=== PATIENT | male | born 1955 | race Caucasian/White ===

== ENCOUNTER 2017-02-07 08:48 | Emergency (ER) | payer OTHER ==
[2017-02-07 08:53] VITALS: RESP 18
[2017-02-07] MEDS ORDERED: NS 1,000 ML IV ONE (09:07)
[2017-02-07] MEDS ORDERED: OSELTAMIVIR PHOSPHATE 75 MG CAP PO ONE (09:12)
--- NOTE | 2017-02-07 09:12 | EDPHY ---
H & P Stated Complaint: cough, sore throat HPI/ROS: CHIEF COMPLAINT: Flu-like symptoms HISTORY OF PRESENT ILLNESS: Patient complains of 4 days history of body aches, fevers, chills, productive cough, malaise and myalgia. This was sudden onset. Constant duration. Moderate to severe. More severe than previous incidence of viral illness. The patient feels that he has the flu, but wants to make sure that he does not have pneumonia or strep. He started a Z-Rosas on himself 3 days ago. He has no chest pain. No shortness of breath. No abdominal pain. No urinary complaints other than baseline BPH. Minimal nausea. No vomiting. No neck pain or stiffness. Does have a mild, persistent headache. No other associated complaints or modifying factors. REVIEW OF SYSTEMS: Ten systems reviewed and are negative unless otherwise noted in the HPI PERTINENT MEDICAL HISTORY: None EXAMINATION General Appearance: Alert, no distress Head: normocephalic, atraumatic Eyes: Pupils equal and round, no conjunctival pallor or injection. EOMs intact. ENT, Mouth: Mucous membranes moist. Uvula midline. Minimal erythema and cobblestoning. No edema. Airway is widely patent. Neck: Normal inspection, supple, non-tender. No rigidity or meningismus. Respiratory: Lungs are clear to auscultation. No wheezing, rhonchi or crackles. No distress or retractions Cardiovascular: Regular rate and rhythm. No murmur. Pulses intact distally. Gastrointestinal: Abdomen is soft and nontender. No hepatosplenomegaly. No tympany. No rigidity. Back: non-tender, no bony abnormalities Neurological: GCS is A&O, nonfocal, normal gait Skin: Warm and dry, no rash. No petechiae or purpura Extremities: Nontender, no pedal edema Psychiatric: Mood and affect normal DIFFERENTIAL DIAGNOSES: Including but not limited to influenza, viral illness, community-acquired pneumonia, strep pharyngitis, viral pharyngitis MDM: 9:08 a.m. Flu-like symptoms. The patient has all normal vital signs. Examination is unremarkable for any abnormal findings. Does have some mild postnasal drip. 10:15 a.m. chest x-ray unremarkable as read by myself and Dr. Farrell. Laboratory studies thus far suggest viral illness. Influenza test is pending at this time. We discussed this with the patient and he is comfortable being discharged home with presumed influenza treatment. We started treatment with Tamiflu. Discharged home with continuation for 5 days. He is to follow up with primary care physician. We will contact him when his laboratory studies returned. He is discharged home stable condition. SUPERVISION: Patient was evaluated in conjunction with the supervising physician. Please see their note for details. Source: Patient Exam Limitations: No limitations - Personal History Current Tetanus/Diphtheria Vaccine: Yes Current Tetanus Diphtheria and Acellular Pertussis (TDAP): Yes - Medical/Surgical History Hx Asthma: No Hx Chronic Respiratory Disease: No Hx Diabetes: No Hx Cardiac Disease: No Hx Renal Disease: No Hx Cirrhosis: No Hx Alcoholism: No Hx HIV/AIDS: No Hx Splenectomy or Spleen Trauma: No Other PMH: orthopedic injuries - Family History Significant Family History: No pertinent family hx - Social History Smoking Status: Former smoker Constitutional: Initial Vital Signs Temperature (C) 98.1 F 02/07/17 08:51 Heart Rate 79 02/07/17 08:51 Respiratory Rate 18 02/07/17 08:51 Blood Pressure 108/69 02/07/17 08:51 O2 Sat (%) 96 02/07/17 08:51 O2 Delivery Mode Room Air Allergies/Adverse Reactions: No Known Allergies Allergy (Unverified 02/07/17 08:50) Home Medications: Medication Instructions Recorded Oseltamivir Phosphate [Tamiflu 75 75 mg PO BID #10 cap 02/07/17 mg (*)] Medical Decision Making - Diagnostics Imaging Results: Imaging Impressions Chest X-Ray 02/07/17 09:07 Impression: Findings consistent with airways disease are noted with no superimposed pneumonia identified. - Data Points Laboratory Results: Laboratory Results 02/07/17 09:15 02/07/17 09:15 02/07/17 02/07/17 02/07/17 Unknown 09:25 09:15 WBC RBC Hgb Hct MCV MCH MCHC RDW Plt Count MPV Neut % (Auto) Lymph % (Auto) [place] % (Auto) Eos % (Auto) Baso % (Auto) Nucleat RBC Rel Count Absolute Neuts (auto) Absolute Lymphs (auto) Absolute Monos (auto) Absolute Eos (auto) Absolute Basos (auto) Absolute Nucleated RBC Immature Gran % Immature Gran # Sodium Potassium Chloride Carbon Dioxide Anion Gap BUN Creatinine Estimated GFR Glucose Calcium Total Bilirubin Conjugated Bilirubin Unconjugated Bilirubin AST ALT Alkaline Phosphatase Total Protein Albumin Lipase Influenza Typ A,B (DFA) Influenza A & B (PCR) POSITIVE FOR FLU B H (NEGATIVE) Mycoplasma pneumon IgM NEGATIVE (NEGATIVE) Group A Strep Screen Group A Strep DNA Pending 02/07/17 02/07/17 02/07/17 09:15 09:15 09:15 WBC RBC Hgb Hct MCV MCH MCHC RDW Plt Count MPV Neut % (Auto) Lymph % (Auto) [place] % (Auto) Eos % (Auto) Baso % (Auto) Nucleat RBC Rel Count Absolute Neuts (auto) Absolute Lymphs (auto) Absolute Monos (auto) Absolute Eos (auto) Absolute Basos (auto) Absolute Nucleated RBC Immature Gran % Immature Gran # Sodium 138 mEq/L mEq/L (134-144) Potassium 4.2 mEq/L mEq/L (3.5-5.2) Chloride 103 mEq/L mEq/L (97-110) Carbon Dioxide 25 mEq/l mEq/l (22-31) Anion Gap 10 mEq/L mEq/L (8-16) BUN 15 mg/dL mg/dL (7-23) Creatinine 0.8 mg/dL mg/dL (0.7-1.3) Estimated GFR > 60 Glucose 117 mg/dL H mg/dL (70-100) Calcium 9.7 mg/dL mg/dL (8.5-10.4) Total Bilirubin 1.0 mg/dL mg/dL (0.1-1.4) Conjugated Bilirubin 0.3 mg/dL mg/dL (0.0-0.5) Unconjugated Bilirubin 0.7 mg/dL mg/dL (0.0-1.1) AST 23 IU/L IU/L (17-59) ALT 31 IU/L IU/L (21-72) Alkaline Phosphatase 58 IU/L IU/L (38-126) Total Protein 7.0 g/dL g/dL (6.3-8.2) Albumin 4.4 g/dL g/dL (3.5-5.0) Lipase 57.0 IU/L IU/L (23-300) Influenza Typ A,B (DFA) Cancelled Influenza A & B (PCR) Mycoplasma pneumon IgM Group A Strep Screen NEGATIVE (NEGATIVE) Group A Strep DNA 02/07/17 09:15 WBC 2.99 10^3/uL L 10^3/uL (3.80-9.50) RBC 4.75 10^6/uL 10^6/uL (4.40-6.38) Hgb 14.5 g/dL g/dL (13.7-17.5) Hct 42.6 % % (40.0-51.0) MCV 89.7 fL fL (81.5-99.8) MCH 30.5 pg pg (27.9-34.1) MCHC 34.0 g/dL g/dL (32.4-36.7) RDW 13.3 % % (11.5-15.2) Plt Count 95 10^3/uL L 10^3/uL (150-400) MPV 12.2 fL H fL (8.7-11.7) Neut % (Auto) 54.5 % % (39.3-74.2) Lymph % (Auto) 25.8 % % (15.0-45.0) [place] % (Auto) 18.1 % H % (4.5-13.0) Eos % (Auto) 1.3 % % (0.6-7.6) Baso % (Auto) 0.3 % % (0.3-1.7) Nucleat RBC Rel Count 0.0 % % (0.0-0.2) Absolute Neuts (auto) 1.63 10^3/uL L 10^3/uL (1.70-6.50) Absolute Lymphs (auto) 0.77 10^3/uL L 10^3/uL (1.00-3.00) Absolute Monos (auto) 0.54 10^3/uL 10^3/uL (0.30-0.80) Absolute Eos (auto) 0.04 10^3/uL 10^3/uL (0.03-0.40) Absolute Basos (auto) 0.01 10^3/uL L 10^3/uL (0.02-0.10) Absolute Nucleated RBC 0.00 10^3/uL 10^3/uL (0-0.01) Immature Gran % 0.0 % % (0.0-1.1) Immature Gran # 0.00 10^3/uL 10^3/uL (0.00-0.10) Sodium Potassium Chloride Carbon Dioxide Anion Gap BUN Creatinine Estimated GFR Glucose Calcium Total Bilirubin Conjugated Bilirubin Unconjugated Bilirubin AST ALT Alkaline Phosphatase Total Protein Albumin Lipase Influenza Typ A,B (DFA) Influenza A & B (PCR) Mycoplasma pneumon IgM Group A Strep Screen Group A Strep DNA Medications Given: Discontinued Medications Sodium Chloride (Ns) 1,000 mls @ 0 mls/hr IV ONCE ONE PRN Reason: Wide Open Stop: 02/07/17 09:08 Last Admin: 02/07/17 09:28 Dose: 1,000 mls Oseltamivir Phosphate (Tamiflu) 75 mg PO EDNOW ONE Stop: 02/07/17 09:13 Last Admin: 02/07/17 09:38 Dose: 75 mg Departure - Departure Disposition: Home, Routine, Self-Care Clinical Impression: Flu-like symptoms, Cough Condition: Good Instructions: Influenza (ED) Additional Instructions: Medications as discussed. Follow up with PCP. ED precautions as discussed Referrals: Umesh Eid MD [Primary Care Provider] - As per Instructions Prescriptions: Oseltamivir Phosphate [Tamiflu 75 mg (*)] 75 mg PO BID #10 cap
[2017-02-07 09:33] LABS: ADD DIFF? NO; ADD MORPH? NO; ADD SCAN? NO; ATYPICAL LYMPHOCYTE FLAG 10 (0-99); FRAGMENT RBC FLAG 0 (0-99); HEMATOCRIT 42.6 % (40.0-51.0); HEMOGLOBIN 14.5 g/dL (13.7-17.5); LEFT SHIFT FLG 0 (0-99); LIPEMIA HEMOLYSIS FLAG 90 (0-99); MEAN CELL HEMOGLOBIN 30.5 pg (27.9-34.1); MEAN CELL VOLUME 89.7 fL (81.5-99.8); MEAN PLATELET VOLUME 12.2 fL (8.7-11.7); PLATELET CLUMPS FLAG 10 (0-99); PLATELET COUNT 95 10^3/uL (150-400); RED BLOOD CELL COUNT 4.75 10^6/uL (4.40-6.38); RED CELL DISTRIBUTION WIDTH 13.3 % (11.5-15.2)
[2017-02-07 09:55] LABS: ALANINE AMINOTRANSFERASE 31 IU/L (21-72); ALBUMIN 4.4 g/dL (3.5-5.0); ALKALINE PHOSPHATASE 58 IU/L (38-126); ANION GAP 10 mEq/L (8-16); ASPARTATE AMINOTRANSFERASE 23 IU/L (17-59); BILIRUBIN-CONJUGATED 0.3 mg/dL (0.0-0.5); BILIRUBIN-UNCONJUGATED 0.7 mg/dL (0.0-1.1); CALCIUM 9.7 mg/dL (8.5-10.4); CARBON DIOXIDE 25 mEq/l (22-31); CHLORIDE 103 mEq/L (97-110); CREATININE 0.8 mg/dL (0.7-1.3); GLOMERULAR FILTRATION RATE > 60; GLUCOSE 117 mg/dL (70-100); POTASSIUM 4.2 mEq/L (3.5-5.2); SODIUM 138 mEq/L (134-144)
[2017-02-07 10:03] VITALS: BP 120/69; PULSE 65; TEMP 98.6; O2SAT 94
== END 2017-02-07 10:04 | disposition home or self-care (01) ==
DX: J10.1 Influenza due to other identified influenza virus with other respiratory manifestations (principal); Z87.891 Personal history of nicotine dependence
CPT/HCPCS: 86738-90

== ENCOUNTER → 2017-02-11 | Day surgery (SDC) | payer OTHER ==
[~2017-02-11] MED LIST: ATROPINE SULFATE 1 MG/10 ML SYR ONE; BENZOCAINE UNIT DOSE SPRAY HURRICAINE MM ONE; MIDAZOLAM 2 MG/2 ML VIAL IVP ONE; NS 1,000 ML IV SCH; NS 500 ML IV ONE; PROPOFOL 200 MG/20 ML VIAL IVP ONE; fentaNYL 100 MCG/2 ML INJ IVP ONE
[2017-02-11 19:58] LABS: ADD DIFF? NO; ADD MORPH? NO; ADD SCAN? NO; ATYPICAL LYMPHOCYTE FLAG 70 (0-99); FRAGMENT RBC FLAG 0 (0-99); HEMATOCRIT 40.4 % (40.0-51.0); HEMOGLOBIN 13.8 g/dL (13.7-17.5); LEFT SHIFT FLG 0 (0-99); LIPEMIA HEMOLYSIS FLAG 90 (0-99); MEAN CELL HEMOGLOBIN 30.6 pg (27.9-34.1); MEAN CELL HEMOGLOBIN CONCENTR. 34.2 g/dL (32.4-36.7); MEAN CELL VOLUME 89.6 fL (81.5-99.8); PLATELET CLUMPS FLAG 10 (0-99); PLATELET COUNT 115 10^3/uL (150-400); RED BLOOD CELL COUNT 4.51 10^6/uL (4.40-6.38); RED CELL DISTRIBUTION WIDTH 12.9 % (11.5-15.2)
[2017-02-11 20:08] LABS: INR 1.1 (0.83-1.16); PROTIME(PATIENT) 14.1 SEC (12.0-15.0)
[2017-02-11 20:09] LABS: APTT 33.2 SEC (23.0-38.0)
--- NOTE | 2017-02-11 20:10 | PDTEE1 ---
MARILYN Cardioversion Procedure Procedure: Electrical Cardioversion, Transesophageal Echo Indications: Other (atrial flutter) Procedural Details: Pads were placed in anterior-posterior position. MARILYN probe was advanced and standard images obtained. There is no evidence of left atrial or left atrial appendage thrombus. 70 joules applied in a synchronized fashion with latter day of sinus. Synchronized cardioversion attempt #1: other (70 J) Results: Normal sinus rhythm Conclusions: Successful MARILYN Cardioversion Conclusion Comment: 1. eliquis 5 mg bid for thirty days. 2. ecg in one week. Patient Problems: Problems Problem Status Onset Atrial flutter Acute
--- NOTE | 2017-02-11 20:11 | CPEKG ---
Heart Rate: 69 RR Interval: 870 P-R Interval: 156 QRSD Interval: 86 QT Interval: 404 QTC Interval: 433 P [place]: 69 QRS [place]: 37 T Wave [place]: -11 EKG Severity - BORDERLINE ECG - EKG Impression: SINUS RHYTHM EKG Impression: BORDERLINE T ABNORMALITIES, INFERIOR LEADS Electronically Signed By: Charlie Liriano 12-Feb-2017 07:17:58
--- NOTE | 2017-02-11 20:13 | PDGENHP ---
History and Physical - Chief Complaint palpitations - History of Present Illness 61 yo male, no prior CV history with acute onset palpitations last night. He was found to be in atrial flutter and is here for a cardioversion guided by MARILYN. He denies chest pain, SOB, PND, orthopnea. He was started on metoprolol and eliquis earlier today. He had been ill with viral illness requiring hydration over the weekend. Questionable hx. of rheumatic fever as a child. History Information - Allergies/Home Medication List Allergies/Adverse Reactions: No Known Allergies Allergy (Unverified 02/07/17 08:50) I have personally reviewed and updated: family history, medical history, social history, surgical history - Past Medical History no pertinent PMH - Surgical History Additional surgical history: Shoulder replacement surgery - Family History Positive for: non-pertinent - Social History Smoking Status: Former smoker Alcohol Use: Occasionally Review of Systems Constitutional: Reports: recent illness EENMT: Reports: no symptoms Cardiac: Reports: no symptoms Respiratory: Reports: cough Gastrointestinal: Reports: no symptoms Genitourinary: Reports: no symptoms Muscolosketal: Reports: no symptoms Skin: Reports: no symptoms Neurological: Reports: no symptoms Hematologic/Lymphatic: Reports: no symptoms Immunologic/Allergy: Reports: no symptoms Physical Exam Constitutional: no apparent distress Eyes: PERRL, anicteric sclera, EOMI Ears, Nose, Mouth, Throat: dry mucous membranes Cardiovascular: no murmur, rub, or gallop, irregularly irregular, No JVD Peripheral Pulses: 1+: carotid (R), carotid (L), femoral (R), femoral (L), dorsalis-pedis (R), dorsalis-pedis (L) Respiratory: no respiratory distress, no rales or rhonchi, clear to auscultation Gastrointestinal: normoactive bowel sounds, soft, non-tender abdomen, no palpable masses Genitourinary: no bladder fullness Skin: warm Musculoskeletal: full muscle strength, no muscle tenderness Neurologic: AAOx3, sensation intact bilaterally, No weakness, No numbness, No facial droop Psychiatric: interacting appropriately, not anxious Lymph, Heme, Immunologic: no cervical LAD, no supraclavicular LAD Lab Data & Imaging Review 02/11/17 19:45 02/11/17 19:45 WBC 3.87 10^3/uL (3.80-9.50) 05/04/17 19:45 RBC 4.51 10^6/uL (4.40-6.38) 02/11/17 19:45 Hgb 13.8 g/dL (13.7-17.5) 02/11/17 19:45 Hct 40.4 % (40.0-51.0) 02/11/17 19:45 MCV 89.6 fL (81.5-99.8) 02/11/17 19:45 MCH 30.6 pg (27.9-34.1) 02/11/17 19:45 MCHC 34.2 g/dL (32.4-36.7) 02/11/17 19:45 RDW 12.9 % (11.5-15.2) 02/11/17 19:45 Plt Count 115 10^3/uL (150-400) L 02/11/17 19:45 MPV 12.0 fL (8.7-11.7) H 02/11/17 19:45 Neut % (Auto) 36.4 % (39.3-74.2) L 02/11/17 19:45 Lymph % (Auto) 49.4 % (15.0-45.0) H 02/11/17 19:45 [place] % (Auto) 9.0 % (4.5-13.0) 02/11/17 19:45 Eos % (Auto) 4.7 % (0.6-7.6) 02/11/17 19:45 Baso % (Auto) 0.5 % (0.3-1.7) 02/11/17 19:45 Nucleat RBC Rel Count 0.0 % (0.0-0.2) 02/11/17 19:45 Absolute Neuts (auto) 1.41 10^3/uL (1.70-6.50) L 02/11/17 19:45 Absolute Lymphs (auto) 1.91 10^3/uL (1.00-3.00) 02/11/17 19:45 Absolute Monos (auto) 0.35 10^3/uL (0.30-0.80) 02/11/17 19:45 Absolute Eos (auto) 0.18 10^3/uL (0.03-0.40) 02/11/17 19:45 Absolute Basos (auto) 0.02 10^3/uL (0.02-0.10) 02/11/17 19:45 Absolute Nucleated RBC 0.00 10^3/uL (0-0.01) 02/11/17 19:45 Immature Gran % 0.0 % (0.0-1.1) 02/11/17 19:45 Immature Gran # 0.00 10^3/uL (0.00-0.10) 02/11/17 19:45 PT 14.1 SEC (12.0-15.0) 02/11/17 19:45 INR 1.10 (0.83-1.16) 02/11/17 19:45 APTT 33.2 SEC (23.0-38.0) 02/11/17 19:45 EKG additional interpertation: atrial flutter without ST-T changes. Assessment & Plan Assessment: Atrial flutter (Acute) Properly anticoagulated and rate controlled. Onset < 24 hours. MARILYN/Cardioversion. Evaluation for secondary causes. No indication for chronic rhythm management at this point.
[2017-02-11 20:34] LABS: ALANINE AMINOTRANSFERASE 34 IU/L (21-72); ALBUMIN 4.4 g/dL (3.5-5.0); ALKALINE PHOSPHATASE 51 IU/L (38-126); ANION GAP 10 mEq/L (8-16); ASPARTATE AMINOTRANSFERASE 21 IU/L (17-59); BILIRUBIN,TOTAL 0.9 mg/dL (0.1-1.4); BILIRUBIN-CONJUGATED 0.4 mg/dL (0.0-0.5); BILIRUBIN-UNCONJUGATED 0.5 mg/dL (0.0-1.1); CALCIUM 10.1 mg/dL (8.5-10.4); CARBON DIOXIDE 27 mEq/l (22-31); CHLORIDE 106 mEq/L (97-110); CREATININE 0.8 mg/dL (0.7-1.3); GLOMERULAR FILTRATION RATE > 60; GLUCOSE 96 mg/dL (70-100); MAGNESIUM 2.1 mg/dL (1.6-2.3); POTASSIUM 4.8 mEq/L (3.5-5.2); SODIUM 143 mEq/L (134-144); TOTAL PROTEIN 6.7 g/dL (6.3-8.2)
[2017-02-11 20:44] LABS: TROPONIN I 0.063 ng/mL (0-0.034)
== END | disposition home or self-care (01) ==
LOC: FCATH 19:33 → EEVIPCON 19:33
PROVIDERS: ATTEND Internal Medicine Interventional Cardiology
PROC: B245ZZ4 Ultrasonography of Left Heart, Transesophageal (ICD-10-PCS; principal; 2017-02-11)
PROC: 5A2204Z Restoration of Cardiac Rhythm, Single (ICD-10-PCS; principal; 2017-02-11)
DX: I48.92 Unspecified atrial flutter (principal)
CPT/HCPCS: J0461

== ENCOUNTER → 2017-06-20 | Outpatient (CLI) | payer OTHER | LOC: FLAB 09:41 | DX: S92.512A Displaced fracture of proximal phalanx of left lesser toe(s), initial encounter for closed fracture (principal) ==

== ENCOUNTER → 2018-09-19 | Outpatient (CLI) | payer OTHER ==
[~2018-09-19] MED LIST changes: -ATROPINE SULFATE 1 MG/10 ML SYR ONE; -BENZOCAINE UNIT DOSE SPRAY HURRICAINE MM ONE; +IOPAMIDOL (ISOVUE-300) 150 ML BTL ONE; -MIDAZOLAM 2 MG/2 ML VIAL IVP ONE; -NS 1,000 ML IV SCH; -NS 500 ML IV ONE; -PROPOFOL 200 MG/20 ML VIAL IVP ONE; -fentaNYL 100 MCG/2 ML INJ IVP ONE
== END ==
LOC: FIMAGING 07:32
PROVIDERS: ATTEND Specialist
DX: N20.0 Calculus of kidney (principal); N28.1 Cyst of kidney, acquired; K76.89 Other specified diseases of liver; N40.0 Benign prostatic hyperplasia without lower urinary tract symptoms; M51.37 Other intervertebral disc degeneration, lumbosacral region; M48.07 Spinal stenosis, lumbosacral region
CPT/HCPCS: Q9967

== ENCOUNTER → 2018-11-28 | Outpatient (CLI) | payer OTHER ==
[~2018-11-28] MED LIST changes: +GADOBUTROL 10 ML VIAL IVP ONE; -IOPAMIDOL (ISOVUE-300) 150 ML BTL ONE
== END ==
LOC: FIMAGING 06:37
PROVIDERS: ATTEND Psychiatry & Neurology Neurology
DX: M79.9 Soft tissue disorder, unspecified (principal); R90.82 White matter disease, unspecified; M50.30 Other cervical disc degeneration, unspecified cervical region; M99.71 Connective tissue and disc stenosis of intervertebral foramina of cervical region; M85.88 Other specified disorders of bone density and structure, other site; G90.50 Complex regional pain syndrome I, unspecified; M48.02 Spinal stenosis, cervical region; R20.2 Paresthesia of skin
CPT/HCPCS: A9585

== ENCOUNTER → 2018-12-02 | Outpatient (CLI) | payer OTHER | LOC: FIMAGING 18:08 | PROVIDERS: ATTEND Psychiatry & Neurology Neurology | DX: E23.7 Disorder of pituitary gland, unspecified (principal); R90.89 Other abnormal findings on diagnostic imaging of central nervous system; G90.50 Complex regional pain syndrome I, unspecified; M48.02 Spinal stenosis, cervical region | CPT/HCPCS: A9585 ==

== ENCOUNTER → 2018-12-11 | Outpatient (CLI) | payer OTHER | LOC: FIMAGING 06:44 | PROVIDERS: ATTEND Psychiatry & Neurology Neurology | DX: M79.9 Soft tissue disorder, unspecified (principal); M48.07 Spinal stenosis, lumbosacral region; M51.37 Other intervertebral disc degeneration, lumbosacral region; M51.34 Other intervertebral disc degeneration, thoracic region; M51.44 Schmorl's nodes, thoracic region; M51.36 Other intervertebral disc degeneration, lumbar region; M46.96 Unspecified inflammatory spondylopathy, lumbar region; M40.204 Unspecified kyphosis, thoracic region; N28.1 Cyst of kidney, acquired | CPT/HCPCS: A9585 ==